=== PATIENT | male | born 1980 | race Caucasian/White ===

== ENCOUNTER 2020-02-27 13:23 | Emergency (ER) | payer OTHER ==
[~2020-02-27] VITALS: Ht 177.8 cm; Wt 72.6 kg
[2020-02-27] MEDS ORDERED: IBUP800 PO (15:45)
== END 2020-02-27 15:57 | disposition home or self-care (01) ==
LOC: ER 13:23
DX: M79.621 Pain in right upper arm (principal); F17.290 Nicotine dependence, other tobacco product, uncomplicated; V68.4XXA Person boarding or alighting a heavy transport vehicle injured in noncollision transport accident, initial encounter; X50.1XXA Overexertion from prolonged static or awkward postures, initial encounter
CPT/HCPCS: 73060; 76882; 99284-25

== ENCOUNTER 2020-03-26 12:25 | Emergency (ER) | payer OTHER ==
[~2020-03-26] VITALS: Ht 177.8 cm; Wt 72.6 kg
[~2020-03-26 12:25] MED LIST: IBUP800 PO
[2020-03-26] MEDS ORDERED: Norco 5-325 Ta1 EACH PO (13:48)
== END 2020-03-26 14:03 | disposition home or self-care (01) ==
LOC: ER 12:25
DX: S46.211A Strain of muscle, fascia and tendon of other parts of biceps, right arm, initial encounter (principal); F17.290 Nicotine dependence, other tobacco product, uncomplicated; X50.1XXA Overexertion from prolonged static or awkward postures, initial encounter
CPT/HCPCS: 76882; 99283-25; A9270-GY